=== PATIENT | male | born 1990 | race Caucasian/White ===

== ENCOUNTER 2020-02-03 15:10 | Emergency (ER) | payer OTHER, SELFPAY ==
[2020-02-03 15:20] VITALS: BP 132/82; PULSE 83; RESP 18; TEMP 37.2; O2SAT 99
--- NOTE | 2020-02-03 15:41 | ED.URI ---
HPI - URI/Sore Throat General Chief Complaint: Upper Respiratory Infection Stated Complaint: cough/runny nose/headache/sore throat Time Seen by Provider: 02/03/20 15:41 Source: patient and RN notes reviewed Mode of arrival: ambulatory Limitations: no limitations History of Present Illness HPI Narrative: 29-year-old male presents with concern for cough, runny nose, sore throat, nasal congestion. Reports cough has been worsening, reports mid chest discomfort with coughing. Denies taking any iycd-tof-riqtajy medications for symptomatic. Reports he was tested for coronavirus on the first day his symptoms began, tested negative. He denies fever, malaise, chills, sweats. Reports body aches MD elicited complaint: cough Related Data Allergies Allergy/AdvReac Type Severity Reaction Status Date / Time codeine Allergy Unknown RASH Verified 02/03/20 15:45 Review of Systems Review of Systems: Narrative: CONSTITUTIONAL: Denies malaise, chills, sweats, or fever. EYES: Denies visual changes, redness, or discharge. ENT: Reports rhinorrhea, congestion, sore throat. Denies sinus pain, otalgia. CARDIOVASCULAR: Denies chest pain, palpitations, or edema. RESPIRATORY: Reports cough, mid chest discomfort with coughing. Denies dyspnea. GASTROINTESTINAL: Denies abdominal pain, nausea, vomiting, diarrhea SKIN: Denies rash or itching. MUSCULOSKELETAL: Reports myalgia. NEUROLOGIC: Denies headache. All systems reviewed & are unremarkable except as noted in HPI and below PMFSH Comments At time of signature, agree with nursing past medical, surgical, social and family history. There is no relevant family history pertinent to the presenting complaint Exam Narrative: Exam Narrative: GENERAL: Well-appearing, well-nourished, and in no acute distress. HEAD: Normocephalic EYES: PERRLA, conjunctivae clear ENT: Nares clear, turbinates erythematous, clear discharge. Mucous membranes moist. TM pearly razo with dull light reflex bilaterally; no tragal tenderness. Oropharynx normal erythematous without lesions. Tonsils not enlarged and without exudate, no drooling, no hoarseness, no trismus, uvula midline. NECK: Supple. No lymphadenopathy CHEST: Clear to auscultation, breath sounds equal. No wheezing, rhonchi, rales, or stridor. No respiratory distress, speaks in full sentences. HEART: Regular rate and rhythm. No murmur heard. SKIN: Warm, dry, no rash. NEURO: Alert and oriented x3. PSYCH: Normal mood and affect Course Course Emergency Course: Patient is aware of diagnosis, understands and agrees to treatment plan. Anticipatory guidance given. Patient agrees to follow-up as directed and is aware of reasons to seek care at the emergency department. Portions of this record may have been created with voice recognition software Vital Signs Vital signs: Vital Signs Temperature 98.9 F 02/03/20 15:20 Pulse Rate 83 02/03/20 15:20 Respiratory Rate 18 02/03/20 15:20 Blood Pressure 132/82 02/03/20 15:20 Pulse Oximetry 99 02/03/20 15:20 Temperature 98.9 F 02/03/20 15:20 Pulse Rate 83 02/03/20 15:20 Respiratory Rate 18 02/03/20 15:20 Blood Pressure 132/82 02/03/20 15:20 Pulse Oximetry 99 02/03/20 15:20 Reviewed. Pt has been instructed to follow up with his primary care provider within the next week regarding his elevated blood pressure today. MDM - URI/Sore Throat MDM Narrative Medical decision making narrative: Differential diagnosis considered: Davila virus, strep pharyngitis, allergic rhinitis, upper respiratory tract infection, sinusitis, rhinosinusitis, nasopharyngitis. viral pharyngitis, otitis media, otitis externa, pneumonia, bronchitis, viral cough syndrome, viral syndrome, and influenza. Exam findings show no acute concerns or changes; patient is non-toxic appearing and is in no distress. Patient is appropriate for outpatient treatment and follow-up. Critical Care Time Critical Care Time Critical Care Time: No Discharge Karina
== END 2020-02-03 15:56 | disposition home or self-care (01) ==
PROVIDERS: Emergency Provider Nurse Practitioner; PCP Family Medicine
DX: J40 Bronchitis, not specified as acute or chronic (principal); Z20.828 Contact with and (suspected) exposure to other viral communicable diseases
CPT/HCPCS: 99213; G0463

== ENCOUNTER 2021-04-14 14:14 | Emergency (ER) | payer OTHER, SELFPAY ==
--- NOTE | 2021-04-14 14:20 | ED.SKABFB ---
HPI - Skin/Abscess/Foreign Bdy General Chief complaint: Skin/Abscess/Foreign Body Stated complaint: Ingrown hair Time Seen by Provider: 04/14/21 14:20 Source: patient and RN notes reviewed History of Present Illness HPI narrative: Patient is a 30-year-old male who presents the urgent care with complaints of left thigh ingrown hair. Patient states he noticed it last night and has become more painful. Patient states he has a history of staph. States that it has became larger throughout the day. Denies any fever, chills, nausea, vomiting. Patient has not done anything [id number] for his pain. No other acute complaints. No acute distress noted. Patient read the plan of care. Some parts of this dictation were generated by voice recognition software and may contain typographical and/or grammatical inaccuracies. Related Data Allergies Allergy/AdvReac Type Severity Reaction Status Date / Time codeine Allergy Unknown RASH Verified 04/14/21 14:44 Review of Systems Review of Systems: CONSTITUTIONAL: Denies fever, chills, or sweats. EYES: Denies visual changes, redness, or discharge. ENT: Denies rhinorrhea, congestion, sore throat, or otalgia. CARDIOVASCULAR: Denies chest pain, palpitations, or edema. RESPIRATORY: Denies cough or dyspnea. GASTROINTESTINAL: Denies abdominal pain, nausea, vomiting, or diarrhea. GENITOURINARY: Denies dysuria or hematuria. SKIN: Reports of an ingrown hair to the left thigh MUSCULOSKELETAL: Denies back pain, joint pain, or myalgia. NEUROLOGIC: Denies headache, numbness, or weakness. All other systems reviewed are negative, except as documented in HPI. PMFSH Comments At the time of my signature, I reviewed and agree with the nursing past medical, surgical, social, and family history. There is no relevant family history pertinent to the patient complaint. Exam Narrative: GENERAL: This is a well-nourished, well-developed patient, in no apparent distress. HEAD: normocephalic, atraumatic. EYES: PERRL. Sclera clear/white. Vision is grossly intact. EARS: External ears normal NOSE: External nose normal with no obvious nasal discharge, nares without redness, no rhinorrhea. THROAT: Mucous membranes moist NECK: Neck supple CARDIOVASCULAR: Regular rate and rhythm without murmurs, gallops, or rubs. RESPIRATORY: Clear to auscultation. Breath sounds equal bilaterally. No wheezes, rales, or rhonchi. SKIN: 1 x 1 cm of firm erythema noted to the medial upper left thigh with firmness of 3 x 3 cm and moderate tenderness. No drainage noted. NEURO: awake, alert, and oriented to person, place and time. There were no obvious focal neurologic abnormalities. EXTREMITIES: No clubbing, cyanosis, or edema. Course Vital Signs Vital signs: Vital Signs Temperature 98.0 F 04/14/21 14:22 Pulse Rate 61 04/14/21 14:22 Respiratory Rate 20 04/14/21 14:22 Blood Pressure 120/67 04/14/21 14:22 Pulse Oximetry 100 04/14/21 14:22 Temperature 98.0 F 04/14/21 14:22 Pulse Rate 61 04/14/21 14:22 Respiratory Rate 20 04/14/21 14:22 Blood Pressure 120/67 04/14/21 14:22 Pulse Oximetry 100 04/14/21 14:22 Reviewed MDM - Skin/Abscess/Foreign Bdy MDM Narrative Medical decision making narrative: Advised the patient complete the oral antibiotic regimen as prescribed. Be sure to eat and drink with the medication. May use a warm compress or ice to the area for comfort or pain. Use Tylenol/ibuprofen as needed. If you develop any increase in swelling associated with fever, nausea, vomiting?go to the emergency room. Follow-up with your PCP within 2 to 5 days or for worsening symptoms or failure to improve. Differential Diagnosis Differential diagnosis: Likely abscess of skin or subcutaneous tissue, dermatophytosis, urticaria, allergic reaction to drug, insect bites and impetigo Discharge Plan Discharge Clinical Impression: Folliculitis Patient Disposition: Home, Self-Care Condition: Stable Instructio
[2021-04-14 14:22] VITALS: BP 120/67; PULSE 61; RESP 20; TEMP 36.7; O2SAT 100
== END 2021-04-14 14:53 | disposition home or self-care (01) ==
PROVIDERS: Emergency Provider Nurse Practitioner Family; PCP Specialist
DX: L73.9 Follicular disorder, unspecified (principal); Z86.14 Personal history of Methicillin resistant Staphylococcus aureus infection
CPT/HCPCS: 99213; G0463

== ENCOUNTER 2021-07-14 13:55 | Emergency (ER) | payer OTHER, SELFPAY ==
[2021-07-14 14:00] VITALS: BP 137/78; PULSE 83; RESP 14; TEMP 37.3; O2SAT 100
[2021-07-14 14:08] VITALS: BP 137/78; PULSE 83; RESP 14; TEMP 37.3; O2SAT 100
--- NOTE | 2021-07-14 14:21 | ED.GENADULT ---
HPI - General Adult General Chief complaint: Back Pain/Injury Stated complaint: Chest Pain/Back Pain/Diarrhea Time Seen by Provider: 07/14/21 15:00 Source: patient and RN notes reviewed Mode of arrival: ambulatory Limitations: no limitations History of Present Illness HPI narrative: 31-year-old male presents with concern for 4-day history of intermittent abdominal pain, vomiting, diarrhea, body aches, fatigue. He reports he has not had vomiting today. He reports that symptoms have improved however he is still fatigued and having diarrhea. He denies known sick contacts. Related Data Allergies Allergy/AdvReac Type Severity Reaction Status Date / Time codeine Allergy Unknown RASH Verified 07/14/21 14:07 Review of Systems Review of Systems: CONSTITUTIONAL: Reports malaise, fatigue EYES: Denies visual changes, redness, or discharge. ENT: Denies rhinorrhea, congestion, sinus pain, otalgia or sore throat. CARDIOVASCULAR: Reports chest pain. Denies palpitations, or edema. RESPIRATORY: Denies cough or dyspnea. GASTROINTESTINAL: Denies current abdominal pain. Reports nausea, vomiting, diarrhea : He denies dysuria, hematuria, frequency, urgency. Reports normal urination SKIN: Denies rash or itching. MUSCULOSKELETAL: Reports back pain NEUROLOGIC: Denies headache. PSYCHIATRIC: Denies anxiety or depression. All systems reviewed & are unremarkable except as noted in HPI and below PMFSH Comments At time of signature, agree with nursing past medical, surgical, social and family history. There is no relevant family history pertinent to the presenting complaint Exam Narrative: GENERAL: Well-appearing, well-nourished, and in no acute distress. HEAD: Normocephalic, atraumatic. EYES: PERRLA, sclera clear ENT: Nares clear, turbinates pink, no rhinorrhea or epistaxis. Mucous membranes moist. TM pearly razo with sharp light reflex bilaterally; no tragal tenderness. Oropharynx without erythema or lesions. Tonsils not enlarged and without exudate. NECK: Supple. No lymphadenopathy. CHEST: No respiratory distress. Clear to auscultation. No bony deformities, no asymmetry. Speaks in full sentences. HEART: Regular rate and rhythm. No murmur heard. Normal peripheral pulses. ABDOMEN: Soft, nontender, nondistended, normal active bowel sounds, no palpable masses. EXTREMITIES: Normal range of motion. No edema. Normal strength and sensation. SKIN: Warm, dry, no visible rash. NEURO: Alert and oriented x3. PSYCH: Normal mood and affect Course Course Emergency Course: Patient is aware of diagnosis, understands and agrees to treatment plan. Anticipatory guidance given. Patient agrees to follow-up as directed and is aware of reasons to seek care at the emergency department. Portions of this record may have been created with voice recognition software Level of Care: Express Care Visit Vital Signs Vital signs: Vital Signs Temperature 99.1 F 07/14/21 14:00 Pulse Rate 83 07/14/21 14:00 Respiratory Rate 14 07/14/21 14:00 Blood Pressure 137/78 07/14/21 14:00 Pulse Oximetry 100 07/14/21 14:00 Temperature 99.1 F 07/14/21 14:08 Pulse Rate 83 07/14/21 14:08 Respiratory Rate 14 07/14/21 14:08 Blood Pressure 137/78 07/14/21 14:08 Pulse Oximetry 100 07/14/21 14:08 Reviewed. Medical Decision Making MDM Narrative Medical decision making narrative: Differential diagnosis considered: Davila virus, strep pharyngitis, allergic rhinitis, upper respiratory tract infection, sinusitis, rhinosinusitis, nasopharyngitis. viral pharyngitis, otitis media, otitis externa, pneumonia, bronchitis, viral cough syndrome, viral syndrome, and influenza. Exam findings show no acute concerns or changes; patient is non-toxic appearing and is in no distress. Patient is appropriate for outpatient treatment and follow-up. Vital Signs Vital Signs: Vital Signs Temperature 99.1 F 07/14/21 14:00 Pulse Rate 83 07/14/21 14:00 Respiratory Rate 14 06/25
== END 2021-07-14 15:17 | disposition home or self-care (01) ==
PROVIDERS: Emergency Provider Nurse Practitioner
DX: B34.9 Viral infection, unspecified (principal); Z20.822 Contact with and (suspected) exposure to COVID-19
CPT/HCPCS: 87426; 99213; C9803; G0463

== ENCOUNTER 2022-07-21 17:43 | Emergency (ER) | payer OTHER, SELFPAY ==
[2022-07-21 17:49] VITALS: BP 127/65; PULSE 72; RESP 16; TEMP 36.9; O2SAT 100
--- NOTE | 2022-07-21 18:17 | ED.SKABFB ---
HPI - Skin/Abscess/Foreign Bdy General Chief complaint: Skin/Abscess/Foreign Body Stated complaint: Skin Sore Source: patient and RN notes reviewed History of Present Illness HPI narrative: 32-year-old male presents to urgent care with complaints an infected hair to his left upper thigh. Patient states it has been there for last couple days but it got worse after he tried to squeeze it yesterday. Denies any drainage from the area. Denies any fevers, chills, or any other complaints. Some parts of this dictation were generated by voice recognition software and may contain typographical and/or grammatical inaccuracies. Related Data Allergies Allergy/AdvReac Type Severity Reaction Status Date / Time codeine Allergy Unknown RASH Verified 07/14/21 14:07 Review of Systems Review of Systems: CONSTITUTIONAL: Denies fever, chills, or sweats. EYES: Denies visual changes, redness, or discharge. ENT: Denies otalgia and sore throat CARDIOVASCULAR: Denies chest pain, palpitations, or edema. RESPIRATORY: Denies cough or dyspnea. GASTROINTESTINAL: Denies abdominal pain, nausea, vomiting, or diarrhea. GENITOURINARY: Denies dysuria or hematuria. SKIN: infected ingrown hair MUSCULOSKELETAL: Denies back pain, joint pain, or myalgia. NEUROLOGIC: Denies headache, numbness, or weakness. PMFSH Comments At the time of my signature, I reviewed and agree with the nursing past medical, surgical, social, and family history. There is no relevant family history pertinent to the patient complaint. Exam Narrative: GENERAL: This is a well-nourished, well-developed patient, in no apparent distress. HEAD: normocephalic, atraumatic. EYES: PERRL. Sclera clear/white. Vision is grossly intact. EARS: External ears normal, auditory canals clear and without drainage, TMs normal without perforation. Hearing grossly intact. NOSE: External nose normal with no obvious nasal discharge, nares without redness, no rhinorrhea. CARDIOVASCULAR: Regular rate RESPIRATORY: No respiratory distress SKIN: erythremic ingrown hair with scab to left upper, inner, thigh. no drainage or induration noted. NEURO: awake, alert, and oriented to person, place and time. There were no obvious focal neurologic abnormalities. EXTREMITIES: No clubbing, cyanosis, or edema. No joint tenderness, effusion, or edema noted. Course Course Level of Care: Express Care Visit Vital Signs Vital signs: Vital Signs Temperature 98.4 F 07/21/22 17:49 Pulse Rate 72 07/21/22 17:49 Respiratory Rate 16 07/21/22 17:49 Blood Pressure 127/65 07/21/22 17:49 Pulse Oximetry 100 07/21/22 17:49 Oxygen Delivery Room Air 07/21/22 17:49 Temperature 98.4 F 07/21/22 17:49 Pulse Rate 72 07/21/22 17:49 Respiratory Rate 16 07/21/22 17:49 Blood Pressure 127/65 07/21/22 17:49 Pulse Oximetry 100 07/21/22 17:49 Oxygen Delivery Room Air 07/21/22 17:49 Reviewed MDM - Skin/Abscess/Foreign Bdy MDM Narrative Medical decision making narrative: Apply the antibiotic ointment at least twice a day and monitor for any signs of further infection. Go to emergency department if he notices any signs of further infection. Differential Diagnosis Differential diagnosis: Likely abscess of skin or subcutaneous tissue, cellulitis and insect bites Critical Care Time Critical Care Time Critical Care Time: No Discharge Plan Discharge Clinical Impression: Cellulitis Qualifiers: Site of cellulitis: extremity Site of cellulitis of extremity: lower extremity Laterality: left Qualified Code(s): L03.116 - Cellulitis of left lower limb Patient Disposition: Home, Self-Care Condition: Stable Instructions: Antibiotic Form Additional Instructions: Apply the antibiotic ointment at least twice a day and monitor for any signs of further infection. Go to emergency department if he notices any signs of further infection. Prescriptions: New mupirocin 2 % ointment 1 applic topical BID Q
== END 2022-07-21 18:28 | disposition home or self-care (01) ==
PROVIDERS: Emergency Provider Nurse Practitioner Family
DX: L03.116 Cellulitis of left lower limb (principal)
CPT/HCPCS: 99213; G0463

== ENCOUNTER 2022-08-09 17:29 | Emergency (ER) | payer OTHER, SELFPAY ==
[2022-08-09 17:33] VITALS: BP 156/78; PULSE 97; RESP 20; TEMP 37.2; O2SAT 100
--- NOTE | 2022-08-09 17:51 | ED.URI ---
HPI - URI/Sore Throat General Chief Complaint: Upper Respiratory Infection Stated Complaint: Cough Time Seen by Provider: 08/09/22 17:51 Source: patient, RN notes reviewed and old records reviewed Mode of arrival: ambulatory Limitations: no limitations History of Present Illness HPI Narrative: 32-year-old male who presents to [facility] Care with complaints of harsh cough which started yesterday evening with sinus congestion and drainage. Patient reports that cough kept him up most of night even though he took NyQuil. Patient reports that he has been taking Mucinex DM and DayQuil during the day with little improvement in his symptoms. Patient reports that he is fatigued, denies any body aches or any shortness of breath. Patient reports that he gets this stuff every year, thinks is just worn down from working turn arounds at [employer].Reports that kids have also been ill at home. MD elicited complaint: cough (harsh), rhinorrhea and nasal congestion Onset (ago): day(s) (day 2 of symptoms) Able to tolerate fluids by mouth: Yes Treatments prior to arrival: other (DayQuil, NyQuil MucinexDM) Related Data Allergies Allergy/AdvReac Type Severity Reaction Status Date / Time codeine Allergy Unknown RASH Verified 08/09/22 17:39 Review of Systems Review of Systems: CONSTITUTIONAL: Denies known fever, chills, or sweats. EYES: Denies visual changes, redness, or discharge. ENT: Reports rhinorrhea, congestion,no sore throat, or otalgia. CARDIOVASCULAR: Denies chest pain, palpitations, or edema. RESPIRATORY: Reports harsh cough denies dyspnea. GASTROINTESTINAL: Denies abdominal pain, nausea, vomiting, or diarrhea. GENITOURINARY: Denies dysuria or hematuria. SKIN: Denies rash or itching. MUSCULOSKELETAL: Denies back pain, joint pain, or myalgia. NEUROLOGIC: Denies headache, numbness, or weakness,is fatigued PSYCHIATRIC: Denies anxiety or depression. All systems reviewed & are unremarkable except as noted in HPI and below [facility] Social History Social History (Updated 08/11/22 @ 21:25 by Domonique Aparicio NP) Smoking status: Never smoker Alcohol intake: current Alcohol use details: social Substance use type: does not use Living arrangements: with family Gender identity (if verbalized by the patient): Male Comments At time of signature, agree with nursing past medical, surgical, social and family history. There is no relevant family history pertinent to the presenting complaint Exam Narrative: GENERAL: Well-appearing, well-nourished, and in no acute distress. HEAD: Normocephalic EYES: PERRLA, conjunctivae clear ENT: Nares clear, turbinates edematous and erythematous, clear discharge. Mucous membranes moist. TM pearly razo with dull light reflex bilaterally; no tragal tenderness. Oropharynx erythematous without lesions. Tonsils not enlarged and without exudate, no drooling, no hoarseness, no trismus, uvula midline. NECK: Supple. No lymphadenopathy CHEST: Clear to auscultation, breath sounds equal. No wheezing, rhonchi, rales, or stridor. No respiratory distress, speaks in full sentences. HEART: Regular rate and rhythm. No murmur heard. SKIN: Warm, dry, no rash. NEURO: Alert and oriented x3. PSYCH: Normal mood and affect Course Course Emergency Course: Patient is aware of diagnosis, understands and agrees to treatment plan.? Anticipatory guidance given.? Patient agrees to follow-up as directed and is aware of reasons to seek care at the emergency department. Portions of this record may have been created with voice recognition software Level of Care: Express Care Visit Vital Signs Vital signs: Vital Signs Temperature 37.2 C 08/09/22 17:33 Pulse Rate 97 08/09/22 17:33 Respiratory Rate 20 08/09/22 17:33 Blood Pressure 156/78 H 08/09/22 17:33 Pulse Oximetry 100 08/09/22 17:33 Oxygen Delivery Room Air 08/09/22 17:33 Temperature 37.2 C 08/09/22 17:33 Pulse Rate 97 08/09/22 17:33 Respi
== END 2022-08-09 18:10 | disposition home or self-care (01) ==
PROVIDERS: Emergency Provider Registered Nurse
DX: J06.9 Acute upper respiratory infection, unspecified (principal)
CPT/HCPCS: 99213; G0463